=== PATIENT | female | born 1985 | race Two or more races ===

== ENCOUNTER 2019-05-26 03:56 | Emergency (ER) | payer MEDICAID, OTHER ==
[~2019-05-26] VITALS: Ht 165.1 cm; Wt 113.4 kg
[2019-05-26 04:21] VITALS: BP 116/46
[2019-05-26] MEDS ORDERED: ALBUTEROL SULF 2.5 MG/0.5ML(0.5%) NEB SOLN NEB ONE (06:30)
[2019-05-26] MEDS ORDERED: IPRATROPIUM BROM 0.5 MG/2.5ML INH SOL NEB ONE (06:30)
== END 2019-05-26 07:48 | disposition home or self-care (01) ==
LOC: ER 04:02
DX: J40 Bronchitis, not specified as acute or chronic (principal)
CPT/HCPCS: 94640; 99283; J7611; J7644

== ENCOUNTER 2020-06-11 03:32 | Emergency (ER) | payer OTHER, SELFPAY ==
[~2020-06-11] VITALS: Ht 165.1 cm; Wt 122.0 kg
[2020-06-11 04:12] LABS: Basophils # (auto) 0.1 10 ^3/uL (0-0.2); Basophils % (auto) 1.3 % (0.0-2.0); Eosinophils # (auto) 0 10 ^3/uL (0-0.8); Eosinophils % (auto) 0.7 % (0.0-7.0); Hematocrit 37.4 % (36.0-46.0); Hemoglobin 12.9 g/dL (12.2-16.2); Lymphocytes # (auto) 1.3 10 ^3/uL (0.4-5.4); Lymphocytes % (auto) 26.7 % (10.0-50.0); Mean Corpuscular Hemoglobin 31.3 pg (28.0-32.0); Mean Corpuscular Hgb Conc. 34.4 g/dL (32.0-36.0); Mean Corpuscular Volume 90.9 fL (80.0-100.0); Monocytes # (auto) 0.7 10 ^3/uL (0-1.3); Monocytes % (auto) 13.6 % (0.0-12.0); Neutrophils # (auto) 2.9 10 ^3/uL (1.6-8.6); Neutrophils % (auto) 57.7 % (37.0-80.0); Nucleated Red Blood Cells % 0.2 %; Red Blood Cells 4.11 10^6/uL (4.0-5.20); Red Cell Distribution Width 13.7 % (11.8-14.3)
[2020-06-11 04:29] LABS: Albumin 3.3 g/dL (3.4-5.0); Anion Gap 7 (5-15); Blood Urea Nitrogen 14 mg/dL (7-18); Calcium 8.6 mg/dL (8.5-10.1); Carbon Dioxide 24 mmol/L (21-32); Chloride 107 mmol/L (98-107); Glucose 90 mg/dL (74-106); Magnesium 1.9 mg/dL (1.6-2.6); Potassium 3.8 mmol/L (3.5-5.1); Sodium 138 mmol/L (136-145)
[2020-06-11 04:36] LABS: Alanine Aminotransferase 25 U/L (13-56); Alkaline Phosphatase 89 U/L (45-117); Aspartate Aminotransferase 23 U/L (15-37); BUN/Creatinine Ratio 20.3; Bilirubin, Total 0.4 mg/dL (0.2-1.0); GFR African American 123 mL/min; GFR Non-African American 102 mL/min; Total Protein 7.3 g/dL (6.4-8.2)
[2020-06-11] MEDS ORDERED: SODIUM CHLORIDE 0.9% 1,000 ML IV ONE (05:30)
[2020-06-11 06:43] VITALS: BP 121/68
== END 2020-06-11 06:46 | disposition home or self-care (01) ==
LOC: ER 03:32
DX: U07.1 COVID-19 (principal)
CPT/HCPCS: 36415; 71045; 80053; 83735; 84484; 85025; 87426; 93005; 96360

== ENCOUNTER 2022-04-29 05:52 | Emergency (ER) | payer OTHER ==
[~2022-04-29] VITALS: Ht 165.1 cm; Wt 113.4 kg
[2022-04-29] MEDS ORDERED: LIDOCAINE VISCOUS 2% 15ML UD PO ONE (07:15)
[2022-04-29] MEDS ORDERED: cefTRIAXone SOD 1,000 MG VL IM ONE (07:15)
[2022-04-29] MEDS ORDERED: LIDOCAINE 1% HCL (LOCAL ANESTH.) INJ 20ML MDV ONE (07:19)
[2022-04-29] MEDS ORDERED: LIDO2SOL23 MT (07:25)
[2022-04-29] MEDS ORDERED: AZIT500T66 PO (07:25)
[2022-04-29 07:44] VITALS: BP 117/76
== END 2022-04-29 07:48 | disposition home or self-care (01) ==
LOC: ER 05:52
DX: J03.90 Acute tonsillitis, unspecified (principal); Z20.822 Contact with and (suspected) exposure to COVID-19; Z90.49 Acquired absence of other specified parts of digestive tract; Z88.8 Allergy status to other drugs, medicaments and biological substances
CPT/HCPCS: 36415; 87070; 87426; 87880; 96372; 99283; J0696; J2001